=== PATIENT | male | born 1955 | race Caucasian/White ===

== ENCOUNTER → 2018-02-04 13:38 | Outpatient (CLI) | payer OTHER, SELFPAY ==
[2018-02-04 13:59] LABS: Appearance Urine UA CLEAR; Bilirubin Urine UA NEGATIVE (NEGATIVE); Color Urine UA YELLOW; Glucose Urine UA NEGATIVE (Normal); Ketones Urine UA 1+ (NEGATIVE); Leukocyte Esterase Urine UA NEGATIVE (NEGATIVE); Nitrite Urine UA Negative (Negative); Occult Blood Urine UA 1+ (Negative); Protein Urine UA NEGATIVE (Negative); Urobilinogen Urine UA 0.2 E.U./dL (0.2)
[2018-02-04 14:04] LABS: Add Manual Diff / Slide Review NO; Basophils Percent Auto 0.6 % (0-2); Eosinophils Percent Auto 0.7 % (2-4); Hematocrit 43.1 % (41-53); Hemoglobin 14.9 g/dL (13.5-17.5); Lymphocytes Percent Auto 19.1 % (25-40); Mean Corpuscular HGB Conc 34.5 % (30-36); Mean Corpuscular Hemoglobin 30.6 PG (26-34); Mean Corpuscular Volume 88.7 fL (80-100); Monocytes Percent Auto 8.9 % (3-14); Neutrophils Absolute Auto 3900 /uL (3000-5900); Neutrophils Percent Auto 70.7 % (50-75); Platelet Count 269 X10^3/uL (150-400); Red Blood Cell Count 4.85 X10^6/uL (4.5-5.9); Red Cell Distribution Width 13.7 % (11.6-14.8); White Blood Cell Count 5.5 X10^3/uL (4.5-11.0)
[2018-02-04 14:25] LABS: Bacteria Urine Few (2-10); Culture Indicated Urine Cult Not Indicated; RBC Urine 1-5/HPF (0-5/HPF); WBC Urine 1-5/HPF (0-5/HPF)
[2018-02-04 14:59] LABS: BUN Creatinine Ratio 24.4 (6-22); Blood Urea Nitrogen 22 mg/dL (9-20); Calcium 9.6 mg/dL (8.4-10.2); Carbon Dioxide 23 mmol/L (22-32); Chloride 103 mmol/L (98-107); Estimated Glomerular Filt Rate > 60.0 mL/min (>60); Glucose 87 mg/dL (80-110); HEMOLYSIS < 15 (0-50); Sodium 138 mmol/L (137-145)
[2018-02-04 15:04] LABS: Hemoglobin A1C% w Est Avg Glu 5.5 % (4.0-6.0)
[2018-02-04 15:05] LABS: Transferrin 238 mg/dL (206-381)
== END ==
PROVIDERS: Family Provider Family Medicine; PCP Family Medicine; Visit Provider Orthopaedic Surgery
DX: Z01.812 Encounter for preprocedural laboratory examination (principal); M25.561 Pain in right knee; D64.9 Anemia, unspecified; R73.9 Hyperglycemia, unspecified
CPT/HCPCS: 36415; 80048; 81001; 83036; 84466; 85025; 93005; 93010

== ENCOUNTER 2018-02-23 08:05 | Inpatient (IN) | payer OTHER, SELFPAY ==
[2018-02-10 09:46] VITALS: BMI 26.5
[2018-02-23] VITALS (17 sets, daily range): BP systolic 104–127; BP diastolic 54–85; PULSE 52–84; RESP 10–18; TEMP 36.2–37; O2SAT 95–100; BMI 27.5
[2018-02-23] MEDS: LACTATED RINGERS 1,000 ML 42 ML IV (10:05)
--- NOTE | 2018-02-23 10:05 | PM.PREOP ---
Pre-operative Note Interval Note Pre-op Check: History & Physical Reviewed by Physician and Changes
[2018-02-23] MEDS: ACETAMINOPHEN 325 MG TABLET 975 MG PO (10:14)
[2018-02-23] MEDS: CELECOXIB 200 MG CAPSULE PO (10:14)
[2018-02-23] MEDS: CEFAZOLIN 2 GM/100 ML FROZ.PIGGY IV ×2 (10:20→18:50)
[2018-02-23] MEDS: TRANEXAMIC ACID 1,000 MG VIAL 1000 MG INJ ×2 (10:35→11:04)
--- NOTE | 2018-02-23 10:52 | SUR.OPER ---
Supine on padded OR bed. Pillow under head, arms secured on padded armboards <90 degree abduction. Safety belt across torso. Non-operative leg secured with tape over blanket over lower leg. Operative leg secured in DeMayo/Daren positioner.
[2018-02-23] MEDS: BUPIVACAINE 0.25% W/ EPI 50 ML VIAL INJ (11:01)
[2018-02-23] MEDS: BUPIVACAINE LIPOSOME 266 MG/20 ML VIAL INJ (11:01)
[2018-02-23] MEDS: MORPHINE 4 MG/ML INJ INJ (11:02)
--- NOTE | 2018-02-23 12:06 | DI.RAD.S_ITS ---
PROCEDURE: XR KNEE RT 1TO2V INDICATIONS: post op total knee TECHNIQUE: 2 view(s) of the knee acquired. COMPARISON: [facility] [place], XR KNEE ARTHRITIC SERIES RT, 01/07/2018, 9:16. FINDINGS: Bones: Patient is status post knee joint arthroplasty. Hardware components are in expected positions. Visualized bony structures are intact. Soft tissues: Overlying postoperative changes are noted. IMPRESSION: Acute postoperative changes total right knee arthroplasty Dictated by: Tang Durán M.D. on 02/23/2018 at 12:40 Approved by: Tang Durán M.D. on 02/23/2018 at 12:41
--- NOTE | 2018-02-23 12:11 | P.OP_ITS ---
Operative Date/Time/Diagnoses Date of procedure: 02/23/18 Time of procedure: 11:50 Pre-op diagnosis: Right knee osteoarthritis Post-op diagnosis: same Procedure & Clinicians Procedure: Right total knee replacement Same procedure as scheduled: Yes Indications: The patient has had progressively worsening right knee pain with radiographic changes consistent with arthritis. Non-operative management has failed and the patient has requested total knee replacement. The risks, benefits and alternatives to surgery were discussed with the patient prior to proceeding. Risks discussed included, but were not limited to, failure to relieve pain, stiffness, infection, nerve damage, deep venous thrombosis, pulmonary embolism, stroke, coma, heart attack, permanent paralysis and , as well as the potential need for eventual revision of the prosthetic. Surgeon: Yuri Richmond Waste Handling Technician: Ramses Bhatia Click Yes if Unassisted: No Anesthesia Type: General, Spinal and Local Operative Notes Findings: Severe lateral and moderately severe patellofemoral and medial osteoarthritis. Closure Type: primary Specimen(s): none sent Implants & Drains: Implants used in this procedure were manufactured by the [employer] and included the BCS II Journey total knee replacement with a size 6 Oxinium right-sided femur, size 6 non porous Journey tibial base plate, a 9 mm cross-linked polyethylene BCS II tibial insert and a 35 mm oval doug II patella. Applied: implant(s) Estimated Blood Loss (mL): 100 Blood products transfused: none Tourniquet time (min): 55 Procedure in detail: The patient was seen in the pre-operative area, where the patient identified the right knee as the operative site and this was marked with my initials. The patient received pre-operative antibiotics, and was taken to the operating room and placed on the operative table in the supine position. After satisfactory anesthesia, a time study engineer out was performed. The right leg was encircled with a tourniquet about the proximal thigh, and the leg was prepared from the toes to the tourniquet with ChloroPrep in the usual fashion and draped through sterile drapes. The leg was elevated and exsanguinated with Eschmark bandage and the tourniquet inflated to 250 mmHg pressure. The knee was approached through an approximately 18 cm incision centered over the patella and carried into the knee through a medial parapatellar arthrotomy. The anterior osteophytes and soft tissues were removed. The rotational landmarks of [place]'s line and the transepicondylar axis were marked on the femur with electrocautery, and intramedullary guide holes for the femur and tibia were created. The distal femoral cut was made in 6 degrees of valgus using the intramedullary guide at the primary cut setting. The proximal tibial cut was then made using the intramedullary guide, taking 7 mm of bone off the less involved medial side. The extension gap was checked and the rotation of the femoral component confirmed with the gap balancing system. The anterior, posterior and chamfer cuts were then made. The posterior osteophytes and soft tissues were then removed. The posterior capsule was injected with part of a mixture of 50 ml 0.25% Marcaine mixed with 20 ml Exparel and 4 mg of morphine for post-operative pain control. The remainder of this mixture was injected into the capsule and subcutaneous tissues during cement curing. The tibia was prepared with the rotation set by an extra medullary guide. Trial tibial and femoral components were then placed and the intercondylar notch cut through the femoral trial. Range of motion was 0-140 degrees, with good stability throughout the range. The patella was then cut to accommodate the patellar prosthetic. There was no need for a lateral release. The trials were then removed, and the femoral hole plugged with a bone plug. The bone was prepared with pulsatile lavage, and dried with a sponge. Cement was applied and the final prosthetics placed. Excess cement was removed during and after cement curing. After confirming there was no extruded cement posteriorly, the final tibial insert was placed. The knee was copiously irrigated and the tourniquet deflated. Hemostasis was obtained. The capsule was closed with interrupted # 2 polyester suture. The subcutaneous layer was closed with 3-0 Vicryl, and the skin with a running 3-0 V-Lock suture and SteriStrips. An Aquacel Ag dressing was applied and the patient was taken to recovery having tolerated the procedure well. Complications: none Condition: stable Disposition: PACU Plan for aftercare: The patient will be maintained on a standard total knee replacement protocol with weight bearing as tolerated. The patient will receive aspirin and sequential compression devices for DVT prophylaxis. The patient will be discharged home (possibly today) when safe for the home environment.
[2018-02-23] MEDS: fentaNYL 100 MCG/2 ML INJ IV ×2 (12:15→12:20)
--- NOTE | 2018-02-23 12:28 | PT.IPTN ---
Current Diagnoses Bilateral primary osteoarthritis of knee (02/23/18) Surgery Performed Operation Date: 02/23/18 10:15 Actual Procedures p Total Knee Arthroplasty(Right) - Yuri Richmond MD Physical Therapy Treatment Note M3 PT-IP Subjective Start: 02/23/18 12:26 Freq: NEEDED Status: Active Protocol: Document 02/23/18 12:26 RS (Rec: 02/23/18 12:28 RS [id number]) Subjective Physical Therapy Visit Type Type Administrative Note Notes PT order received at 1205, attempted to see the patient, but patient is not up to the floor yet. Pt is POD#0 R TKA scheduled for 1030. Will check on patient later this afternoon, but pt might not be ready to participate in therapy today prior to the end of the day shift. Will continue to monitor.
[2018-02-23] MEDS: HYDROMORPHONE 1 MG INJ 0.25 MG IV ×2 (12:55→13:00)
[2018-02-23] MEDS: LACTATED RINGERS 1,000 ML 100 ML IV (15:09)
--- NOTE | 2018-02-23 15:46 | PT.IIE ---
Current Diagnoses Bilateral primary osteoarthritis of knee (02/23/18) Surgery Performed Operation Date: 02/23/18 10:15 Actual Procedures p Total Knee Arthroplasty(Right) - Yuri Richmond MD Surgical History (Last Updated 02/10/18 @ 10:08 by Dulce Lundberg RN) Hx of LASIK (Acute) Hx of right knee surgery (Acute) Status post epidural steroid injection (Acute) Medical History (Last Updated 02/10/18 @ 10:08 by Dulce Lundberg RN) Arthritis (Acute) Chronic back pain (Acute) Colon polyps (Acute) Rosacea (Acute) Physical Therapy Inpatient Evaluation/Re-Eval Medical Review Prior Functional Status Medical History Reviewed Yes Diet/Fluid Consistency Regular Communication no known deficits Mobility and Gait ind to mod ind w/ SPC, denies falls Activities of Daily Living and IADL's ind Social History Household Members significant other Living Arrangements House Number of Floors (Floors) One Floor Number of Stairs To Enter/Railing? 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 Short Term Goals go home Therapy Pain Assessment Pain When Pain Assessed At Rest Pain Present Pain Present Pain Reported Location Right Jaw Intensity 2 Scale Used Numeric (1 - 10) Pain Management Techniques Apply Cold Elevation Modification of Treatment Re-positioning Timing of Activity with Medications PT-Bed Mobility Assessment Supine to Sit Supine to Sit Contact Guard Assistance 1 Person Assistance Head of Bed Elevated Bedrails Scooting Scooting to Edge of Bed Standby Assistance PT-Transfer Assessment Sit to and From Stand Sit to and from Stand Contact Guard Assistance 1 Person Assistance Use of Upper Extremities Equipment Transfer Assistive Device Gait Belt Front Wheeled Walker Transfers Transfer Destination Chair Transfer Technique Stand Step Pivot Transfer Ability Level of Assist Contact Guard Assistance 1 Person Assistance Use of Upper Extremities Gait Assessment Gait Gait Assistance Required: Contact Guard Assist 1 Person Assist Distance (Feet) (feet) 80 Able to Maintain Weight Bearing Status Yes During Gait Assistive Devices Assistive Device Gait Belt Front Wheeled Walker Gait Deviations General Gait Pattern Antalgic Decreased Stride Length Decreased Feet Clearance Step-to Gait Factors Limiting Gait Function Factors Limiting Gait Function Decreased Sensation Decreased Strength Limited Range of Motion Pain Comments Gait Comments Pt walking with extremely rigid R knee and a step-to gait pattern. Pt also rushing through all movements. With cues to slow down, for shorter symmetrical steps, and to move the FWW between each step pt was able to significantly improve gait quality. Stair Climbing Assessment Comments Stair Climbing Comments not yet tested PT-Balance Assessment Sitting Balance and Reactions Static Sitting Balance Ability Normal Dynamic Sitting Balance Ability Normal Standing Balance and Reactions Static Standing Balance Ability Good Dynamic Standing Balance Ability Good Device Used FWW Orientation Orientation/Cognition Level of Alertness Alert Orientation Name Age Birthday Month Date Year Day of Week Place Situation Language Function Ability No Deficits Noted Safety Awareness Understands Safety Issues Memory Description No Deficits Noted Gross Range of Motion Upper Extremity ROM Assessment Within Functional Limits Lower Extremity ROM Impairments LLE WFL, RLE WFL except knee 10-40 Strength Upper Extremity Strength Assessment Within Functional Limits Comments Strength Comments LLE WFL, RLE not tested Sensation Assessment Comments Sensation Comments WFL except pt report entire buttocks being numb Physical Therapy Treatment Exercises Exercises Ankle Pumps Quad Sets Heel Slides Straight Leg Raises Short Arc Quads Passive Knee Extension Hang Seated Knee Flexion/Extension Knee ROM Measurement 10-40 Education Education Provided Precautions Weight Bearing Status Post-Op Packet Safety PT Summary Assessment and Plan Potential Rehabilitation Potential Good Status of Condition at Evaluation Stable Summary Impairments Pain ROM Strength Transfers Gait Progress Towards Goals Progressing Toward Goals Assessment Summary POD#0 R TKA, RN reporting pt might discharge home tonight. While pt is doing well for being POD#0 it was highly recommended that pt wait until tomorrow to discharge home so that he can participate in more walking in the hospital before going home. Pt understands the rationale for this recommendation and agrees . Pt is below reported functional baseline but will be safe to discharge home tomorrow or once medically ready. Goals Bed Mobility Goal Independent Transfer Goal Standby Assistance Front Wheeled Walker Gait Goal Standby Assistance Front Wheel Walker Gait Distance 150 Other Goals Up/down 3 steps with CGA. Days to Meet Goals 2 Frequency of Treatment Frequency Of Treatment Twice a Day Treatment Plan Physical Therapy Treatment Plan Gait Training Discharge Planning Other Recommendations and Next Treatment stair training with Tues Focus AM, will be present all day so a specific time was not arranged Recommendations To Nursing Amount of Assist Needed 1 Person Assist Discharge Recommendations PT Discharge Recommendations Home with Assistance Outpatient PT
[2018-02-23] MEDS: ACETAMINOPHEN 325 MG TABLET 650 MG PO (16:18)
[2018-02-23] MEDS: OXYCODONE IR 5 MG TABLET PO ×3 (16:26→22:30)
[2018-02-23] MEDS: hydrOXYzine pamoate 25 MG CAPSULE PO (20:49)
[2018-02-23] MEDS: ASPIRIN EC 81 MG TABLET PO (20:49)
[2018-02-23] MEDS: DOCUSATE 100 MG CAPSULE PO (20:50)
[2018-02-24 01:10] VITALS: BP 119/63; PULSE 61; RESP 20; TEMP 36.8; O2SAT 98
[2018-02-24] MEDS: LACTATED RINGERS 1,000 ML 100 ML IV (01:22)
[2018-02-24] MEDS: CEFAZOLIN 2 GM/100 ML FROZ.PIGGY IV (01:23)
[2018-02-24] MEDS: OXYCODONE IR 5 MG TABLET PO ×3 (01:23→08:44)
[2018-02-24] MEDS: ACETAMINOPHEN 325 MG TABLET 650 MG PO ×2 (01:23→05:37)
[2018-02-24 05:30] VITALS: BP 117/65; PULSE 63; RESP 20; TEMP 36.4; O2SAT 100
[2018-02-24 05:58] LABS: Hematocrit 38.6 % (41-53); Hemoglobin 12.9 g/dL (13.5-17.5)
[2018-02-24 07:25] VITALS: BP 106/59; PULSE 53; RESP 17; TEMP 36.8; O2SAT 97
[2018-02-24] MEDS: ASPIRIN EC 81 MG TABLET PO (08:46)
[2018-02-24] MEDS: DOCUSATE 100 MG CAPSULE PO (08:48)
--- NOTE | 2018-02-24 10:26 | PM.DS.1 ---
History of Present Illness Date Patient Seen: 02/24/18 Time Patient Seen: 10:26 Chief complaint: [id number] Narrative: The patient is a 62-year-old male with a history of right knee osteoarthritis. He failed conservative measures and elected to proceed with the right total knee replacement with Dr. Richmond at [facility]. Discharge Providers Date of admission: 02/23/18 08:05 Primary care physician: Hugo Mederos MD Consults: 02/23/18 12:05 Consult to Physical Therapy Evaluate & Treat Comment: Physician Instructions: postop TKA protocol 02/23/18 14:16 Consult to Discharge Planning Routine Comment: Discharge provider: Linsey Dickinson PA-C Summary Discharge Diagnosis: Right knee osteoarthritis Hospital Course: Patient was admitted taken operating room where he had right total knee arthroplasty by Dr. Richmond. He recovered well was transferred to the floor for further care. Postop date on patient was ambulating well, pain was under control, and urinating without difficulty. He was ready to be discharged home. He has is a [facility] patient and has his discharge medications are ready. Outpatient physical therapy will be done at [facility] physical therapy [facility]. Status at Discharge Cognitive/behavioral status at discharge: Alert and orient x3 Functional status at discharge: uses cane/walker Overall status at discharge: patient is progressing back to baseline Time Spent with Patient Less than 30 minutes Exam Vital Signs (past 8 hours): - 02/24/18 05:30 02/24/18 07:25 Temperature 97.6 F 98.2 F Pulse Rate 63 53 L Respiratory Rate 20 17 Blood Pressure 117/65 106/59 L Pulse Oximetry 100 97 Oxygen Delivery Method Room Air Oxygen Flow Rate 0 Narrative Exam Narrative: Patient walk in the hallway with physical therapy. Alert and orient x3. Right knee dressing clean and dry with the Michael overlap. Moderate swelling and right knee. Calf soft nontender. Neurovascular status intact. Objective Labs Result Diagrams: 02/24/18 05:25 Labs: Laboratory Results - last 24 hr 02/24/18 05:25 Hgb 12.9 L Hct 38.6 L Discharge Plan Discharge Plan Patient Disposition: Home, Self-Care Discharge comment: Continue home exercises. And start outpatient physical therapy. Discharge Med Rec/Prescriptions Prescriptions: New acetaminophen 325 mg Tablet 650 mg PO Q6HR PRN (Reason: Pain, Moderate) Qty: 0 RF: 0 aspirin 81 mg Tablet,Delayed Release (Dr/Ec) 81 mg PO BID Qty: 0 RF: 0 oxycodone 5 mg Tablet 5 mg PO Q4H PRN (Reason: Pain, Moderate (4-6)) Qty: 0 RF: 0 hydroxyzine pamoate 25 mg Capsule 25 mg PO Q6HR PRN (Reason: Nausea) Qty: 0 RF: 0 Discontinued aspirin 81 mg Tablet,Delayed Release (Dr/Ec) 81 mg PO DAILY RF: 0 Follow up/Referrals: Yuri Richmond MD [Physician] - (Follow-up appointment 02/27/2018 at 1:20 p.m. at the [facility]. Any issues or concerns contact the office.) Provider Discharge Instructions Diet: Diet as Tolerated Activity: As tolerated. Cold/Heat Therapy: Apply ice to the extremity as needed for swelling and pain. Wound Care Report to your healthcare provider any signs of infection, such as:: chills, fever, increased pain and unusual drainage Dressing: May remove the Michael in 48 hr. Leave Aquacel dressing intact. May shower. Visit Report/Discharge Packet Instructions: DI for Knee Replacement Discharge Data Primary Care Provider: Hugo Mederos Attending Provider: Yuri Richmond Admit Date/Time: 02/23/18 08:05
--- NOTE | 2018-02-24 10:30 | P.DS_ITS ---
History of Present Illness Date Patient Seen: 02/24/18 Time Patient Seen: 10:26 Chief complaint: [id number] Narrative: The patient is a 62-year-old male with a history of right knee osteoarthritis. He failed conservative measures and elected to proceed with the right total knee replacement with Dr. Richmond at [facility]. Discharge Providers Date of admission: 02/23/18 08:05 Primary care physician: Hugo Mederos MD Consults: 02/23/18 12:05 Consult to Physical Therapy Evaluate & Treat Comment: Physician Instructions: postop TKA protocol 02/23/18 14:16 Consult to Discharge Planning Routine Comment: Discharge provider: Linsey Dickinson PA-C Summary Discharge Diagnosis: Right knee osteoarthritis Hospital Course: Patient was admitted taken operating room where he had right total knee arthroplasty by Dr. Richmond. He recovered well was transferred to the floor for further care. Postop date on patient was ambulating well, pain was under control, and urinating without difficulty. He was ready to be discharged home. He has is a [facility] patient and has his discharge medications are ready. Outpatient physical therapy will be done at [facility] physical therapy [facility]. Status at Discharge Cognitive/behavioral status at discharge: Alert and orient x3 Functional status at discharge: uses cane/walker Overall status at discharge: patient is progressing back to baseline Time Spent with Patient Less than 30 minutes Exam Vital Signs (past 8 hours): - 02/24/18 05:30 02/24/18 07:25 Temperature 97.6 F 98.2 F Pulse Rate 63 53 L Respiratory Rate 20 17 Blood Pressure 117/65 106/59 L Pulse Oximetry 100 97 Oxygen Delivery Method Room Air Oxygen Flow Rate 0 Narrative Exam Narrative: Patient walk in the hallway with physical therapy. Alert and orient x3. Right knee dressing clean and dry with the Michael overlap. Moderate swelling and right knee. Calf soft nontender. Neurovascular status intact. Objective Labs Result Diagrams: 02/24/18 05:25 Labs: Laboratory Results - last 24 hr 02/24/18 05:25 Hgb 12.9 L Hct 38.6 L Discharge Plan Discharge Plan Patient Disposition: Home, Self-Care Discharge comment: Continue home exercises. And start outpatient physical therapy. Discharge Med Rec/Prescriptions Prescriptions: New acetaminophen 325 mg Tablet 650 mg PO Q6HR PRN (Reason: Pain, Moderate) Qty: 0 RF: 0 aspirin 81 mg Tablet,Delayed Release (Dr/Ec) 81 mg PO BID Qty: 0 RF: 0 oxycodone 5 mg Tablet 5 mg PO Q4H PRN (Reason: Pain, Moderate (4-6)) Qty: 0 RF: 0 hydroxyzine pamoate 25 mg Capsule 25 mg PO Q6HR PRN (Reason: Nausea) Qty: 0 RF: 0 Discontinued aspirin 81 mg Tablet,Delayed Release (Dr/Ec) 81 mg PO DAILY RF: 0 Follow up/Referrals: Yuri Richmond MD [Physician] - (Follow-up appointment 02/27/2018 at 1:20 p.m. at the [email or web address]. Any issues or concerns contact the office.) Provider Discharge Instructions Diet: Diet as Tolerated Activity: As tolerated. Cold/Heat Therapy: Apply ice to the extremity as needed for swelling and pain. Wound Care Report to your healthcare provider any signs of infection, such as:: chills, fever, increased pain and unusual drainage Dressing: May remove the Michael in 48 hr. Leave Aquacel dressing intact. May shower. Visit Report/Discharge Packet Instructions: DI for Knee Replacement Discharge Data Primary Care Provider: Hugo Mederos Attending Provider: Yuri Richmond Admit Date/Time: 02/23/18 08:05
--- NOTE | 2018-02-24 10:45 | CM.DANOTE ---
Discharge Planning/Care Management CM Discharge Assessment Start: 02/24/18 10:43 Freq: Status: Active Protocol: Document 02/24/18 10:43 RL (Rec: 02/24/18 10:45 RL [id number]) Discharge Planning Assessment History Provided By Patient Significant Other Has Patient been admitted in last 30 No days? Is this patient on Medicare? No Is the admit diagnosis the same? Yes Prior Living Arrangements House Household Members significant other Type of transporation used prior to Drives own vehicle admit Willing to Return to Facility? No Independent with ADL's Yes Is patient alert and oriented? Yes Caregiver for Another No Referrals Initiated None needed Discharge Plan Home Transportation Arrangement S/o Iris is here to transport him home after work with PT and d/c by them if stable. Review Status Complete DCP Assessment: 02/24/18 Case reviewed, EMR reviewed and met with patient who is fully A&O, dressed to go home, significant other Iris Le in bedside chair ready to transport him home when cleared by PT. Iris is POA and they state this information was given to hospital to place in EMR. Pt is a 62 yo male admitted as Inpatient for RTKA under the care of Dr. Richmond. PCP: Hugo Mederos Primary payor is: [employer] self insured Other health care agencies used: None Met with patient and s/o Iris. Introduced self as DCP, explained role and goals of DCP and as pt advocate. Both verbalized understanding. DCP wrote name and extension number on patient whiteboard. Pt was independent at baseline for all ADLs prior to this hospitalization. Corrects his demographic information: Brother Yuri Emanuel is now living in [place] with changed phone # of [phone]. DPOA is s/o Iris Le, living in same home as patient, her cell is [phone]. These changes submitted to [facility] for changes to make in pt record. Patient and s/o see no barriers to his discharge today. Patient is anxious to work with PT and be released home. Has all needed equipment at home including cryocuff, FWW, cane, grab bars. Plan: Home with Iris Le, s/o, who will transport and care for him. He has outpatient PT already set up. Joseline Louis RN
--- NOTE | 2018-02-24 10:58 | PT.IPTN ---
Current Diagnoses Bilateral primary osteoarthritis of knee (02/23/18) Surgery Performed Operation Date: 02/23/18 10:15 Actual Procedures p Total Knee Arthroplasty(Right) - Yuri Richmond MD Physical Therapy Treatment Note M2 PT-IP Current Condition Start: 02/23/18 12:26 Freq: NEEDED Status: Active Protocol: Document 02/23/18 14:50 RS (Rec: 02/23/18 15:46 RS [id number]) Physical Therapy Current Condition Current Condition Evaluation Date 02/23/18 Treatment Diagnosis R TKA Onset Date 02/23/18 Weight Bearing Status Weight Bearing Status Weight Bear as Tolerated M3 PT-IP Subjective Start: 02/23/18 12:26 Freq: NEEDED Status: Active Protocol: Document 02/24/18 10:36 CLB (Rec: 02/24/18 10:57 CLB [email or web address]) Subjective Physical Therapy Visit Type Type Treatment Note Visit Start Time 10:00 Visit Stop Time 10:36 Total Visit Minutes 36 Number of PRACTICE MANAGER Visits 1 Physical Therapy Visit Comments Patient Comments Pt feeling good and is ready to go home. Short Term Goals go home Therapy Pain Assessment Pain When Pain Assessed During Mobility Pain Present Pain Present Pain Reported Location Right Knee Intensity 4 Scale Used Numeric (1 - 10) Pain Management Techniques Apply Cold Modification of Treatment Re-positioning Timing of Activity with Medications M4 PT-IP Mobility and Gait Start: 02/23/18 12:26 Freq: NEEDED Status: Active Protocol: Document 02/24/18 10:36 CLB (Rec: 02/24/18 10:57 CLB [email or web address]) PT-Bed Mobility Assessment Supine to Sit Supine to Sit Standby Assistance 1 Person Assistance Scooting Scooting to Edge of Bed Standby Assistance PT-Transfer Assessment Sit to and From Stand Sit to and from Stand Standby Assistance Use of Upper Extremities Equipment Transfer Assistive Device Gait Belt Front Wheeled Walker Transfers Transfer Destination Chair Wheelchair Transfer Technique walked Transfer Ability Level of Assist Standby Assistance 1 Person Assistance Use of Upper Extremities Gait Assessment Gait Gait Assistance Required: Standby Assistance Contact Guard Assist 1 Person Assist Distance (Feet) (feet) 200 Able to Maintain Weight Bearing Status Yes During Gait Assistive Devices Assistive Device Gait Belt Front Wheeled Walker Gait Deviations General Gait Pattern Antalgic Decreased Stride Length Decreased Feet Clearance Step-to Gait Factors Limiting Gait Function Factors Limiting Gait Function Decreased Sensation Decreased Strength Limited Range of Motion Pain Comments Gait Comments Pt continues to need cues to slow speed and decrease step length of RLE as well as making sure he doesn't get to close to front of walker for safety. Stair Climbing Assessment Evaluation Level of Assist On Stairs Contact Guard Assistance 1 Person Assistance Devices Stair Climbing Assistive Devices Left Railing Right Railing Technique/Endurance Stair Climbing Direction Ascend and Descend Stair Climbing Technique Step to Step Number of Steps Climbed 3 Query Text: Stair Climbing Set # Repetitions (reps) 1 Comments Stair Climbing Comments Pt successfully trialed stair with assisting pt. M5 PT-IP Objective Assessments Start: 02/23/18 12:26 Freq: NEEDED Status: Active Protocol: Document 02/23/18 14:50 RS (Rec: 02/23/18 15:46 RS [id number]) Orientation Orientation/Cognition Level of Alertness Alert Orientation Name Age Birthday Month Date Year Day of Week Place Situation Language Function Ability No Deficits Noted Safety Awareness Understands Safety Issues Memory Description No Deficits Noted Gross Range of Motion Upper Extremity ROM Assessment Within Functional Limits Lower Extremity ROM Impairments LLE WFL, RLE WFL except knee 10-40 Strength Upper Extremity Strength Assessment Within Functional Limits Comments Strength Comments LLE WFL, RLE not tested Sensation Assessment Comments Sensation Comments WFL except pt report entire buttocks being numb M6 PT-IP Treatment Start: 02/23/18 12:26 Freq: NEEDED Status: Active Protocol: Document 02/24/18 10:36 CLB (Rec: 02/24/18 10:57 CLB [email or web address]) Physical Therapy Treatment Exercises Exercises Quad Sets Heel Slides Straight Leg Raises Short Arc Quads Seated Knee Flexion/Extension Education Education Provided Precautions Weight Bearing Status Post-Op Packet Safety M7 PT-IP Assessment and Plan Start: 02/23/18 12:26 Freq: NEEDED Status: Active Protocol: Document 02/24/18 10:36 CLB (Rec: 02/24/18 10:57 CLB [email or web address]) PT Summary Assessment and Plan Potential Rehabilitation Potential Good Status of Condition at Evaluation Stable Summary Impairments Pain ROM Strength Transfers Gait Progress Towards Goals Progressing Toward Goals Assessment Summary Pt doing well overall with few verbal cues to slow down with ambulation. Pt is SBA with bed mobility and gait. Caregiver training with for stairs has been completed as well as instructions/ performance of ther ex. Pt seems safe to d/c home with assist when medically stable. Goals Bed Mobility Goal Independent Transfer Goal Standby Assistance Front Wheeled Walker Gait Goal Standby Assistance Front Wheel Walker Gait Distance 150 Other Goals Up/down 3 steps with CGA. Days to Meet Goals 2 Frequency of Treatment Frequency Of Treatment Twice a Day Treatment Plan Physical Therapy Treatment Plan Gait Training Discharge Planning Recommendations To Nursing Amount of Assist Needed 1 Person Assist Discharge Recommendations PT Discharge Recommendations Home with Assistance Outpatient PT
--- NOTE | 2018-02-24 10:58 | PC.NURSE ---
Day shift: Left unit at 1100. Paperwork signed and questions answered. He has all personal belongings. He is w/ his spouse and she will be driving him home.
== END 2018-02-24 10:59 | disposition home or self-care (01) | DRG 302 ==
PROVIDERS: Admitting Provider Orthopaedic Surgery; Family Provider Family Medicine; PCP Family Medicine; Visit Provider Orthopaedic Surgery
PROC: 0SRC0JZ Replacement of Right Knee Joint with Synthetic Substitute, Open Approach (ICD-10-PCS; CPT 27447; principal; 2018-02-23 10:15)
DX: M17.11 Unilateral primary osteoarthritis, right knee (principal)
CPT/HCPCS: 36415; 73560; 85014; 85018; 97110; 97116; 97161; C1776; C9290; J0690; J1100; J1170; J2250; J2270; J2405; J2704; J3010

== ENCOUNTER → 2021-01-11 14:35 | Outpatient (CLI) | payer OTHER, SELFPAY ==
[2018-02-23 14:20] VITALS: BMI 27.5
[2021-01-11 14:43] LABS: Bacteria Urine None Seen; RBC Urine None Seen (0-5/HPF)
[2021-01-11 15:17] LABS: Appearance Urine UA CLEAR; Bilirubin Urine UA NEGATIVE (NEGATIVE); Color Urine UA YELLOW; Glucose Urine UA NEGATIVE (Negative); Ketones Urine UA NEGATIVE (NEGATIVE); Leukocyte Esterase Urine UA NEGATIVE (NEGATIVE); Nitrite Urine UA NEGATIVE (Negative); Occult Blood Urine UA 1+ (Negative); Protein Urine UA NEGATIVE (Negative); Specific Gravity Urine UA 1.025 (1.000-1.035); Urobilinogen Urine UA 0.2 E.U./dL (0.2); pH Urine UA 5.5 (4.5-8.0)
[2021-01-11 15:40] LABS: Culture Indicated Urine Cult Not Indicated; Squamous Epithelial Cell Urine 0-1 /HPF (0-5/HPF); WBC Urine 0-1/HPF (0-5/HPF)
[2021-01-11 16:32] LABS: Cholesterol 201 mg/dL (140-199); HDL Cholesterol 68 mg/dL (40-60); LDL Cholesterol Calculated 122 mg/dL (<100); Triglycerides 57 mg/dL (35-150)
[2021-01-11 17:00] LABS: Prostate Specific Antigen Scrn 2.85 ng/mL (0.1-4.0)
[2021-01-11 17:06] LABS: Vitamin D 25 Hydroxy (D3) 52.7 ng/mL (30.0-100.0)
== END ==
PROVIDERS: Family Provider Family Medicine; PCP Student in an Organized Health Care Education/Training Program; Referring Provider Student in an Organized Health Care Education/Training Program; Visit Provider Student in an Organized Health Care Education/Training Program
DX: E55.9 Vitamin D deficiency, unspecified (principal); R35.0 Frequency of micturition; Z12.5 Encounter for screening for malignant neoplasm of prostate; E78.2 Mixed hyperlipidemia
CPT/HCPCS: 36415; 80061; 81001; 82306; G0103

== ENCOUNTER → 2021-02-05 13:24 | Outpatient (CLI) | payer OTHER, SELFPAY ==
[2021-01-22 10:04] VITALS: BMI 27.5
[2021-02-05 14:42] LABS: COVID19 -Nasal RAPID Negative (Negative)
== END ==
PROVIDERS: Family Provider Family Medicine; PCP Student in an Organized Health Care Education/Training Program; Visit Provider Surgery
DX: Z20.822 Contact with and (suspected) exposure to COVID-19 (principal)
CPT/HCPCS: 87635; C9803

== ENCOUNTER 2021-02-06 11:50 | Day surgery (SDC) | payer OTHER, SELFPAY ==
[2021-01-22 10:04] VITALS: BMI 27.5
[2021-02-06] VITALS (7 sets, daily range): BP systolic 95–132; BP diastolic 64–78; PULSE 58–77; RESP 12–20; TEMP 36.6–37.1; O2SAT 96–98; BMI 24.3
--- NOTE | 2021-02-06 | PATH_ITS ---
[facility] Accession Number: [id number] . 01 Material submitted: . PART A: colon - SMALL POLYP AT 60 CM PART B: colon - POLYP AT 35 CM PART C: colon - POLYPS AT 20 CM . 01 Clinical history: . SDC . 02 Diagnosis: A. Small Polyp at 60 cm: Tubular adenoma. . B. Polyp at 35 cm: Tubular adenoma. . C. Polyps at 20 cm: Portions of hyperplastic polyp x4. MRV 02/08/2021 1024 Local . 02 Electronically signed: . Gisselle Cisneros MD, Pathologist NPI- [id number] . 01 Gross description: . Part A: SMALL POLYP AT 60 CM: Received in formalin is 1 fragment(s) of kaplan, soft tissue measuring 0.2 x 0.1 x 0.1 cm submitted entirely in 1 cassette(s) Part B: POLYP AT 35 CM: Received in formalin is 1 fragment(s) of kaplan, soft tissue measuring 0.3 x 0.2 x 0.2 cm submitted entirely in 1 cassette(s) Part C: POLYPS AT 20 CM: Received in formalin are multiple fragment(s) of kaplan, soft tissue measuring 0.6 x 0.6 x 0.2 cm in aggregate submitted entirely in 1 cassette(s) /PAT 02/07/2021 0636 Local . 02 Pathologist provided ICD-10: Z12.11, K63.5 . 02 CPT . 329354, 652013, 713346 Performed at: 01 [facility] [address], [place], [place] [id number] MD Krishna Zacarias MD Phone: [phone] Performed at: 02 [facility] [address] [place] [id number] MD Joellen Duong MD Phone: [phone]
[2021-02-06] MEDS: SODIUM CHLORIDE 0.9% 1,000 ML 200 ML IV (12:19)
--- NOTE | 2021-02-06 12:47 | PM.HP.1 ---
History of Present Illness History of Present Illness Date Patient Seen: 02/06/21 Time Patient Seen: 12:48 Chief complaint: SDC Narrative: This is a 65-year-old man who had a colonoscopy about 6 years ago. He says a few polyps were found during the procedure. He was told to have repeat colonoscopy in 5 years, but delayed because of COVID. Denies any new symptoms. Specifically he denies melena, hematochezia, unexplained abdominal pain, unexplained weight loss. He says he has no family history of colon polyps or colon cancers that he is aware of. ROS: Thirteen system review is otherwise negative other than as mentioned below and in HPI. PE: GENERAL: Well groomed and cooperative. Appears stated age. Answers questions promptly and appropriately. Vital signs noted. HENT: Normocephalic, atraumatic. Hearing intact. EYES: Conjunctiva pink, sclera white, no periorbital swelling. CARDIOVASCULAR: Regular rate. No pedal edema. RESPIRATORY: Non-tachypneic, breathing comfortably on room air. GASTROINTESTINAL: Abdomen soft and non-distended GENITALURINARY: No flank tenderness. MUSCULOSKELETAL: Equal tone and mass bilaterally. SKIN: Warm, dry, soft, appropriate color for ethnicity. No other lesions, rashes, or wounds. NEURO: Alert and Oriented X 3. No gross sensory deficits, or cognitive issues. PSYCH: Appropriate affect and mood. Patient History Medical History Arthritis Chronic back pain Colon polyps Rosacea Surgical History Hx of LASIK Hx of right knee surgery Status post epidural steroid injection Family & Social History Family History Mother Cancer Social History: household members significant other Tobacco & Substance use: Smoking Status Former smoker alcohol intake current alcohol intake frequency a few times a month Substance Use Type does not use Meds Home Medications and Allergies Home Medications Medication Instructions Recorded Confirmed Type tamsulosin 0.4 mg capsule 0.4 mg PO DAILY #30 cap 01/11/21 02/06/21 Rx Allergies Allergy/AdvReac Type Severity Reaction Status Date / Time No Known Drug Allergies Allergy Verified 02/06/21 12:15 Exam Vital Signs (past 8 hours): - 02/06/21 12:20 Temperature 98.1 F Pulse Rate 72 Respiratory Rate 14 Blood Pressure 132/78 Pulse Oximetry 98 Oxygen Delivery Method Room Air Assessment & Plan Assessment and plan (1) Personal history of colonic polyps: Status: Acute Assessment & Plan narrative: Risks and benefits of screening colonoscopy and possible polypectomy were discussed with the patient including risk of bleeding, perforation, need for additional procedures, risks of anesthesia. The patient desires to proceed with the colonoscopy procedure. COVID-19 COVID-19 status: Negative Result date/Date tested (Pos, Neg/Pending): 02/05/21 Time Spent With Patient Time with patient: 15-24 minutes Quality VTE Deep Vein Thrombosis/Pulmonary Embolism Present on Admission: No
--- NOTE | 2021-02-06 12:49 | P.OP.ENDO_ITS ---
Operative Date/Time/Diagnoses Date of procedure: 02/06/21 Time of procedure: 12:49 Pre-op diagnosis: Personal history of colon polyps Procedure & Clinicians Study performed: Colonoscopy Procedural sedation performed by the endoscopist Polypectomy x 4 with Jumbo forceps Same procedure as scheduled: Yes Indications: Personal history colon polyps, due for surveillance colonoscopy Surgeon: Katie Mahmood Procedure Notes SCOAP/Timeout: Performed Procedure in detail: The patient was brought to the room and placed in left lateral decubitus position with all bony prominences padded. A time-out was performed and then the patient was given procedural sedation starting with 5 mg of Versed and 100 mcg of fentanyl. Vitals were monitored throughout the procedure and remained stable. Once adequately sedated, the procedure was begun. A rectal exam was performed revealing no abnormalities. The colonoscope was then introduced to the rectum and advanced to the cecum in the usual fashion. The cecum was identified by the appendiceal orifice, the mucosal tri- fold, and the ileocecal valve. The scope was then retracted while rotating side to side and examining each mucosal fold. Five polyps were removed 1 from 60 cm, 1 from 35 cm and 3 from 20 cm. Scattered diverticular were seen in the descending and sigmoid colon, without evidence of active diverticulitis. At the conclusion of the procedure small grade 1-2 internal hemorrhoids without stigmata of bleeding were seen. The scope was then withdrawn from the rectum the procedure was concluded. The patient tolerated the procedure well and was transferred to the PACU in stable condition. Scope withdrawal time: 9 Sedation minutes: 18 Findings: polyp (Five small polyps) Specimen(s): other (5 small polyps) Complications: none Impression: Five small polyps, scattered diverticula Post-procedure Recommendations: Colonscopy in 5 years (Due to history of colon polyps, and new polyps found on today's exam) Follow up: as needed Disposition: PACU
[2021-02-06] MEDS: fentaNYL 250 MCG/5 ML INJ IV (13:03)
[2021-02-06] MEDS: MIDAZOLAM 5 MG/5 ML VIAL IV (13:03)
== END 2021-02-06 14:04 | disposition home or self-care (01) ==
PROVIDERS: Family Provider Family Medicine; PCP Student in an Organized Health Care Education/Training Program; Referring Provider Surgery; Visit Provider Surgery
PROC: 0DJD8ZZ Inspection of Lower Intestinal Tract, Via Natural or Artificial Opening Endoscopic (ICD-10-PCS; CPT 45378; principal; 2021-02-06 13:00)
DX: Z12.11 Encounter for screening for malignant neoplasm of colon (principal); Z86.010 Personal history of colon polyps; K64.0 First degree hemorrhoids; D12.6 Benign neoplasm of colon, unspecified
CPT/HCPCS: 45380; 99152; J2250; J3010

== ENCOUNTER → 2021-02-08 10:07 | Outpatient (CLI) | payer OTHER, SELFPAY ==
[2021-01-22 10:04] VITALS: BMI 27.5
[2021-02-08 10:56] LABS: Appearance Urine UA CLEAR; Bilirubin Urine UA NEGATIVE (NEGATIVE); Color Urine UA YELLOW; Glucose Urine UA NEGATIVE (Negative); Ketones Urine UA NEGATIVE (NEGATIVE); Leukocyte Esterase Urine UA NEGATIVE (NEGATIVE); Nitrite Urine UA NEGATIVE (Negative); Occult Blood Urine UA TRACE-LYSED (Negative); Protein Urine UA NEGATIVE (Negative); Specific Gravity Urine UA 1.015 (1.000-1.035); Urobilinogen Urine UA 0.2 E.U./dL (0.2); pH Urine UA 5.5 (4.5-8.0)
== END ==
PROVIDERS: Family Provider Family Medicine; PCP Student in an Organized Health Care Education/Training Program; Referring Provider Student in an Organized Health Care Education/Training Program; Visit Provider Student in an Organized Health Care Education/Training Program
DX: R31.9 Hematuria, unspecified (principal); R35.0 Frequency of micturition
CPT/HCPCS: 81003

== ENCOUNTER → 2021-02-16 07:37 | Outpatient (CLI) | payer OTHER, SELFPAY ==
[2021-01-22 10:04] VITALS: BMI 27.5
--- NOTE | 2021-02-16 07:38 | DI.US.S_ITS ---
PROCEDURE: US RENAL COMPLETE INDICATIONS: Urinary retention TECHNIQUE: Real-time scanning was performed of the kidneys and bladder, with image documentation. COMPARISON: None. FINDINGS: Kidneys: Kidneys are normal in size. Right kidney measures 10.5 cm long; left kidney measures 11.2 cm long. Right renal cortical thickness is 2.0 cm; left renal cortical thickness is 2.2 cm. Renal cortical echotexture is normal. No hydronephrosis or nephrolithiasis. No suspicious solid mass lesions. Bladder: Pre-void bladder volume is 395 mL. Post-void residual is 33 mL. Pre-void images demonstrate no intraluminal masses or stones. On pre-void images, bilateral ureteral jets are noted with color Doppler interrogation. (Of note, ureteral jets may not be detectable in up to 25% of cases due to insufficient differences in specific gravity between ureteral and bladder urine). Prostate is enlarged measuring 44 mm x 54 mm x 46 mm. Miscellaneous: No free pelvic fluid. IMPRESSION: 1. No hydronephrosis. 2. Small postvoid residual in urinary bladder. 3. Enlarged prostate. Dictated by: Bindu Sosa M.D. on 02/16/2021 at 16:31 Approved by: Bindu Sosa M.D. on 02/16/2021 at 16:32
== END ==
PROVIDERS: Family Provider Family Medicine; PCP Student in an Organized Health Care Education/Training Program; Referring Provider Student in an Organized Health Care Education/Training Program; Visit Provider Student in an Organized Health Care Education/Training Program
DX: R35.0 Frequency of micturition (principal); R33.9 Retention of urine, unspecified; N40.0 Benign prostatic hyperplasia without lower urinary tract symptoms
CPT/HCPCS: 76770

== ENCOUNTER → 2023-05-23 08:36 | Outpatient (CLI) | payer MEDICARE, OTHER, SELFPAY ==
[2021-01-22 10:04] VITALS: BMI 27.5
[2023-05-23 10:01] LABS: Add Manual Diff / Slide Review NO; Basophils Absolute Auto 100 /uL (0-100); Basophils Percent Auto 1.1 % (0-2); Eosinophils Absolute Auto 100 /uL (0-450); Eosinophils Percent Auto 1.5 % (2-4); Hematocrit 42.5 % (41-53); Hemoglobin 14.7 g/dL (13.5-17.5); Lymphocytes Absolute Auto 1400 /uL (1100-4500); Lymphocytes Percent Auto 24.4 % (25-40); Mean Corpuscular HGB Conc 34.6 % (30-36); Mean Corpuscular Hemoglobin 30.8 PG (26-34); Mean Corpuscular Volume 89.1 fL (80-100); Monocytes Absolute Auto 500 /uL (0-900); Monocytes Percent Auto 8.2 % (3-14); Neutrophils Absolute Auto 3600 /uL (1500-7000); Neutrophils Percent Auto 64.8 % (50-75); Platelet Count 261 X10^3/uL (150-400); Red Blood Cell Count 4.77 X10^6/uL (4.5-5.9); Red Cell Distribution Width 13.7 % (11.6-14.8); White Blood Cell Count 5.6 X10^3/uL (4.5-11.0)
[2023-05-23 10:07] LABS: Appearance Urine UA CLEAR; Bilirubin Urine UA NEGATIVE (NEGATIVE); Color Urine UA YELLOW; Glucose Urine UA NEGATIVE (Negative); Ketones Urine UA NEGATIVE (NEGATIVE); Leukocyte Esterase Urine UA 1+ (NEGATIVE); Nitrite Urine UA NEGATIVE (Negative); Occult Blood Urine UA 1+ (Negative); Protein Urine UA NEGATIVE (Negative); Specific Gravity Urine UA <=1.005 (1.000-1.035); Urobilinogen Urine UA 0.2 E.U./dL (0.2); pH Urine UA 5.5 (4.5-8.0)
[2023-05-23 10:15] LABS: Bacteria Urine Moderate (10-30); Culture Indicated Urine Specimen Cultured; RBC Urine 1-5/HPF (0-5/HPF); Squamous Epithelial Cell Urine 5-10 /HPF (0-5/HPF); WBC Urine 1-5/HPF (0-5/HPF)
[2023-05-23 10:23] LABS: Alanine Aminotransferase 24 IU/L (<50); Albumin 4.3 g/dL (3.5-5.0); Albumin Globulin Ratio 1.3 (1.0-2.8); Alkaline Phosphatase 47 U/L (38-126); Aspartate Aminotransferase 27 IU/L (17-59); BUN Creatinine Ratio 23.7 (6-22); Blood Urea Nitrogen 22 mg/dL (9-20); Calcium 9.9 mg/dL (8.4-10.2); Carbon Dioxide 27 mmol/L (22-32); Chloride 105 mmol/L (98-107); Cholesterol 183 mg/dL (140-199); Estimated Glomerular Filt Rate > 60 mL/min (>60); Globulin 3.2 g/dL (1.7-4.1); Glucose 102 mg/dL (80-110); HDL Cholesterol 69 mg/dL (40-60); HEMOLYSIS < 15 (0-50); LDL Cholesterol Calculated 100 mg/dL (<100); Potassium 5.1 mmol/L (3.4-5.1); Sodium 137 mmol/L (137-145); Total Protein 7.5 g/dL (6.3-8.2); Triglycerides 71 mg/dL (35-150)
[2023-05-23 10:50] LABS: Thyroid Stimulating Hormone 1.36 uIU/mL (0.47-4.68)
== END ==
PROVIDERS: Family Provider Family Medicine; PCP Student in an Organized Health Care Education/Training Program; Referring Provider Pediatrics; Visit Provider Pediatrics
DX: E78.2 Mixed hyperlipidemia (principal); R35.0 Frequency of micturition; Z79.899 Other long term (current) drug therapy
CPT/HCPCS: 36415; 80053; 80061; 81001; 84443; 85025; 87086